=== PATIENT | female | born 1975 | race Two or more races ===

== ENCOUNTER 2022-09-29 10:15 | Emergency (ER) | payer OTHER ==
[~2022-09-29] VITALS: Ht 162.6 cm; Wt 64.4 kg
== END 2022-09-29 14:23 | disposition home or self-care (01) ==
LOC: ER 10:15
DX: R07.9 Chest pain, unspecified (principal)

== ENCOUNTER 2022-10-01 12:46 | Outpatient (CLI) | payer OTHER | END 2022-10-01 12:55 | disposition home or self-care (01) | LOC: RAD 12:46 | DX: J45.909 Unspecified asthma, uncomplicated (principal); J44.9 Chronic obstructive pulmonary disease, unspecified ==

== ENCOUNTER → 2022-10-01 | Outpatient (CLI) | payer OTHER | END | disposition home or self-care (01) | LOC: LAB 11:22 | DX: J06.9 Acute upper respiratory infection, unspecified (principal) ==

== ENCOUNTER 2025-04-19 09:00 | Outpatient (CLI) | payer OTHER ==
[2025-04-19 09:40] LABS: BASO % 0.5 % (0.1-1.2); EOS # 0.07 (0.04-0.54); EOS % 1.1 % (0.7-7.0); HEMATOCRIT 39.5 % (34.1-44.9); HEMOGLOBIN 13.2 g/dL (11.2-15.7); LYMPH # 1.63 (1.18-3.74); MEAN CORPUSCULAR HEMOGLOBIN 30.1 pg (25.6-32.2); MONO % 9.6 % (4.7-12.5); NEUT # 3.91 (1.56-6.13); NEUT % 62.5 % (34.0-71.1); PLATELET COUNT 292 K/uL (163-369); RED BLOOD COUNT 4.39 M/uL (3.93-5.22); RED CELL DISTRIBUTION WIDTH 13.4 % (11.6-14.4)
[2025-04-19 09:55] LABS: PH,URINE 6.5 (5.0-8.0); URINE APPEARANCE Clear; URINE BILIRRUBIN Negative (NEGATIVE); URINE BLOOD Large; URINE COLOR Yellow; URINE GLUCOSE Negative (NEGATIVE); URINE KETONE Negative (NEGATIVE); URINE LEUKOCYTE Small; URINE NITRATE Negative; URINE PROTEIN Negative (NEGATIVE); URINE UROBILINOGEN 0.2 E.U./dl
[2025-04-19 09:59] LABS: URINE BACTERIA 133.4 uL (0.0-1933); URINE EPITHELIAL CELLS 12.8 uL (0.0-38.8); URINE RBC 866.8 uL (0.0-20.8); URINE WBC 12.1 uL (0.0-23.2)
[2025-04-19 10:43] LABS: BILIRUBIN TOTAL 0.36 mg/dL (0.3-1.2); CALCIUM 9.1 mg/dL (8.5-10.1); CHOL HDL RATIO 3.1 (0-5.0); CREATININE SERUM 0.72 mg/dL (0.55-1.02); GFR 86.82; POTASSIUM 4.82 mEq/L (3.5-5.1); TSH 1.64 uIU/mL (0.358-3.74)
[2025-04-19 17:26] LABS: ob NEGATIVE (NEGATIVE)
== END 2025-04-19 09:08 | disposition home or self-care (01) ==
LOC: LAB 09:00
DX: E55.9 Vitamin D deficiency, unspecified (principal); E78.2 Mixed hyperlipidemia; D64.9 Anemia, unspecified; E11.42 Type 2 diabetes mellitus with diabetic polyneuropathy; N39.0 Urinary tract infection, site not specified; E11.9 Type 2 diabetes mellitus without complications; E03.9 Hypothyroidism, unspecified

== ENCOUNTER 2025-08-08 08:44 | Outpatient (CLI) | payer OTHER ==
[2025-08-08 09:46] LABS: URINE APPEARANCE Cloudy; URINE BILIRRUBIN Negative (NEGATIVE); URINE BLOOD Negative; URINE COLOR Yellow; URINE GLUCOSE Negative (NEGATIVE); URINE KETONE Negative (NEGATIVE); URINE LEUKOCYTE Large; URINE NITRATE Negative; URINE PROTEIN Negative (NEGATIVE); URINE UROBILINOGEN 0.2 E.U./dl
[2025-08-08 09:48] LABS: URINE BACTERIA 5075.6 uL (0.0-1933); URINE EPITHELIAL CELLS 67.6 uL (0.0-38.8); URINE RBC 15.2 uL (0.0-20.8); URINE WBC 85.3 uL (0.0-23.2)
[2025-08-08 09:50] LABS: BASO % 0.5 % (0.1-1.2); EOS # 0.11 (0.04-0.54); EOS % 1.5 % (0.7-7.0); LYMPH # 2.01 (1.18-3.74); LYMPH % 26.7 % (19.3-53.1); MEAN PLATELET VOLUME 10.80 fl (9.4-12.4); MONO # 0.69 (0.24-0.82); MONO % 9.2 % (4.7-12.5); NEUT # 4.66 (1.56-6.13); NEUT % 61.8 % (34.0-71.1); RED CELL DISTRIBUTION WIDTH 13.1 % (11.6-14.4)
[2025-08-08 10:34] LABS: ALT/SGPT 30.0 U/L (12-78); AST/SGOT 17.0 U/L (15-37); BILIRUBIN TOTAL 0.48 mg/dL (0.3-1.2); BUN CREA RATIO 18.0 (7.0-25.0); CHOL HDL RATIO 3.3 (0-5.0); CREATININE SERUM 0.78 mg/dL (0.55-1.02); GFR 79.16; GLOBULINA 2.9 G/DL (2.4-3.5); GLUCOSE FASTING 93.0 mg/dL (65-100); HDL 64.0 mg/dl (40-60); LDL 136.0 mg/dl (0-130); OSMOLALITY SERUM 278.0 MOSM/KG (275-295); TSH 1.78 uIU/mL (0.358-3.74); VLDL 11.0 (0-39)
[2025-08-08 10:37] LABS: URINE CAST 1.02 uL (0.0-1.40)
[2025-08-08 13:28] LABS: ob NEGATIVE (NEGATIVE)
== END 2025-08-08 09:10 | disposition home or self-care (01) ==
LOC: LAB 08:44
DX: E55.9 Vitamin D deficiency, unspecified (principal); E78.5 Hyperlipidemia, unspecified; I11.9 Hypertensive heart disease without heart failure; Z12.11 Encounter for screening for malignant neoplasm of colon; E55.0 Rickets, active; N18.1 Chronic kidney disease, stage 1; D64.9 Anemia, unspecified; E03.9 Hypothyroidism, unspecified; K21.9 Gastro-esophageal reflux disease without esophagitis

== ENCOUNTER 2025-08-31 16:58 | Outpatient (CLI) | payer OTHER ==
[2025-08-31 17:19] LABS: ob POSITIVE (NEGATIVE)
== END 2025-08-31 17:19 | disposition home or self-care (01) ==
LOC: LAB 16:58
DX: E55.9 Vitamin D deficiency, unspecified (principal); E78.5 Hyperlipidemia, unspecified; I11.9 Hypertensive heart disease without heart failure; Z12.11 Encounter for screening for malignant neoplasm of colon; E55.0 Rickets, active; N18.1 Chronic kidney disease, stage 1; D64.9 Anemia, unspecified; E03.9 Hypothyroidism, unspecified; K21.9 Gastro-esophageal reflux disease without esophagitis